=== PATIENT | female | born 1995 ===

== ENCOUNTER → 2024-12-03 14:17 | Outpatient (REF) | payer SELFPAY ==
--- OUTSIDE RECORDS SUMMARY | 2018-04-24 14:00 | XMS_ITS | Encounter Summary ---
Author Organization [facility] Address [address] [place] [address] Care Team Providers Care Child'S Nurse Name Role Phone Aminata Christine Primary Care Provider [phone] Reason for Referral * Diagnostic Imaging (Routine) - Closed Specialty Diagnoses / Procedures Referred By Contac t Referred To Contact Radiology Diagnoses First trimester Procedures US Ob Transvaginal Pushpa Cho MD [address] [place] [address] Phone: tel: fax: [facility] Phone: tel: Referral ID Status Reason Start Date Expiration Date Visits Re quested Visits Authorized [id number] Closed 04/24/2018 04/24/2019 1 1 Reason for Visit * Diagnostic Imaging (Routine) - Closed Specialty Diagnoses / Procedures Referred By Contac t Referred To Contact Radiology Diagnoses First trimester Procedures US Ob Transvaginal Pushpa Cho MD [address] [place] [address] [place] [address] Phone: tel: fax: [facility] Phone: tel: Referral ID Status Reason Start Date Expiration Date Visits Re quested Visits Authorized [id number] Closed 04/24/2018 04/24/2019 1 1 Encounter Details Date Type Department Care Team (Latest Contact Info) Description 04/24/2018 1:00 PM EST Hospital Encounter NIURKA CASTILLO [facility] [phone] First trimester Social History Tobacco Use Types Packs/Day Years Used Date Smoking Tobacco: Never Smokeless Tobacco: Never Alcohol Use Standard Drinks/Week Comments No 0 (1 standard drink = 0.6 oz pur e alcohol) socially when not AUDIT-C Answer Date Recorded Frequency of Alcohol Consumption Never 02/01/2019 Average Number of Drinks Not on file 019 Frequency of Binge Drinking Not on file 01/07 [place] Depression Scale Answer Date Recorded Retired [place] Depression Score 9 09/02/2021 Retired EPD Scale: Thought of Harming Self Unrec ognized value 09/02/2021 Abuse Screen Answer Date Recorded Unsafe at Home or Work/School Not on file Feels Threatened by Someone? Not on file 01/2023 Does Anyone Keep You from Co ntacting Others or Doint Things Outside the Home? Not on file 02/13/2023 Physical Sign of Abuse Present Not on file 1 Housing Stability Answer Date Recorded Current Living Arrangements Not on file 01/2023 Potentially Unsafe Housing Conditions Not on sharon e 02/13/2023 Family and Community Support Answer Meg e Recorded Help with Day-to-Day Activities Not on file 02/13/2023 Lonely or Isolated Not on file 02/13/2023 Employment Answer Date Recorded Do you want help finding or keeping work or a steph b? Not on file 02/13/2023 Disabilities Answer Date Recorded Concentrating, Remembering, or Making Decisions Difficulty Not on file 02/13/2023 Doing Errands Independently Difficulty Not on fi le 02/13/2023 Education Answer Date Recorded Help with school or training? Not on file Preferred Language Not on file 02/13/2023 Comments No Sex and Gender Information Value Date Recorded Sex Assigned at Not on file Legal Sex Female 11:06 AM EDT Gender Identity Not on file Sexual Orientation Not on file documented as of this encounter Functional Status documented as of this encounter Plan of Treatment Not on file documented as of this encounter Procedures Procedure Name Priority Date/Time Associated Diagnosis Comments US OB TRANSVAGINAL Routine 04/24/2018 1: 33 PM EST First trimester documented in this encounter Results * US Ob Transvaginal (04/24/2018 1:33 PM EST) Anatomical Region Laterality Modality Body Ultrasound 04/24/2018 1:15 PM EST Narrative 04/24/2018 2:28 PM EST PAT NAME: MALISSA BRAGA MED REC#: [id number] DA: [id number] PAT GEND: F PAT TYPE: O EXAM MEG: [id number] REF PHYS PUSHPA CHO Indication ======== Dating History ====== Previous Outcomes 1 Method ====== Transvaginal ultrasound examination, Voluson E6. View: Adequate view ========= Number of fetuses: uncertain. Dating ====== LMP on: 02/28/2018 GA by LMP 7 w + 6 d MARLYN by LMP: 12/05/2018 Method of dating: based on ultrasound Assessment Gestational sac: visualized GS 17.3 mm 6w 1d Location: intrauterine Yolk sac: visualized Embryo: uncertain Placenta: Too early to evaluate Maternal Structures Uterus and ovaries are within normal limits. Stone Rubber Comments A gestational sac is present, containing a yolk sac. A pole cannot be clearly seen or measured today. Impression ========= Early intrauterine gestational sac Recommendation Repeat U/S in the next 1-2 weeks for confirmation of cardiac activity Stone Rubber: Naye Momin RDMS Physician: Waylon Valencia MD Electronically signed by: Waylon Valencia MD at: 14:28 Procedure Note Waylon Valencia MD - 04/24/2018 PAT NAME: STEPH BRAGAELY MED REC#: [id number] DA: [id number] PAT GEND: F PAT TYPE: O EXAM MEG: [id number] REF PHYS PUSHPA CHO Indication ======== Dating History ====== Previous Outcomes Gravida1 Method ====== Transvaginal ultrasound examination, Voluson E6. View: Adequate view ========= Number of fetuses: uncertain. Dating ====== LMP on:02/28/2018 GA by LMP7 w + 6 d MARLYN by LMP:12/05/2018 Method of dating:based on ultrasound Assessment Gestational sac:visualized GS17.3 mm 6w 1d Location:intrauterine Yolk sac:visualized Embryo:uncertain Placenta:Too early to evaluate Maternal Structures Uterus and ovaries are within normal limits. Stone Rubber Comments A gestational sac is present, containing a yolk sac. A pole cannotbe clearly seen or measured today. Impression ========= Early intrauterine gestational sac Recommendation Repeat U/S in the next 1-2 weeks for confirmation of cardiac activity Stone Rubber: Naye Momin RDMS Physician: Waylon Valencia MD Electronically signed by: Waylon Valencia MD at: 14:28 Pushpa Cho MD [facility] ORDERABLES Final Resu lt documented in this encounter Visit Diagnoses Diagnosis First trimester state, incidental documented in this encounter Additional Health Concerns Infection Onset Date Last Indicated Resolved Time COVID Screen (preop/placement) 07/15/2021 07/16/2021 07/16/2021 8:34 PM EST documented as of this encounter Care Teams Child'S Nurse Relationship Specialty Start Date End Date Aminata Christine PA [address] [place] [address] PCP - General Family Medicine 12/20/16 documented as of this encounter
--- OUTSIDE RECORDS SUMMARY | 2018-05-02 15:12 | XMS_ITS | Encounter Summary ---
Author Organization [facility] Address [address] [place] [address] Care Team Providers Care Grain Manager Name Role Phone Aminata Christine Primary Care Provider [phone] Reason for Referral * Diagnostic Imaging (Routine) - Closed Specialty Diagnoses / Procedures Referred By Virginia nevarez Referred To Contact Radiology Diagnoses Encounter for supervision of normal first in first trimester Procedures US Ob Transvaginal Pushpa Cho MD [address] [facility] [address] [place] [address] Phone: tel: fax: [facility] Phone: tel: Referral ID Status Reason Start Date Expiration Date Visits Re quested Visits Authorized [id number] Closed 04/24/2018 04/24/2019 1 1 Reason for Visit * Diagnostic Imaging (Routine) - Closed Specialty Diagnoses / Procedures Referred By [place] nevarez Referred To Contact Radiology Diagnoses Encounter for supervision of normal first in first trimester Procedures US Ob Transvaginal Pushpa Cho MD [address] [facility] [address] [place] [address] Phone: tel: fax: [facility] Phone: tel: Referral ID Status Reason Start Date Expiration Date Visits Re quested Visits Authorized [id number] Closed 04/24/2018 04/24/2019 1 1 Encounter Details Date Type Department Care Team (Latest Contact Info) Description 05/02/2018 2:12 PM EST Hospital Encounter NIURKA CASTILLO [facility] [place] [phone] Encounter for supervision of normal first in first trimester Social History Tobacco Use Types Packs/Day Years Used Date Smoking Tobacco: Never Smokeless Tobacco: Never Alcohol Use Standard Drinks/Week Comments No 0 (1 standard drink = 0.6 oz pur e alcohol) socially when not AUDIT-C Answer Date Recorded Frequency of Alcohol Consumption Never 02/01/2019 Average Number of Drinks Not on file 019 Frequency of Binge Drinking Not on file 01/07 [place] Depression Scale Answer Date Recorded Retired [place] Depression Score 9 09/02/2021 Retired EPD Scale: [...] help finding or keeping work or a annabel b? Not on file 02/13/2023 Disabilities Answer [...] Associated Diagnosis Comments US OB TRANSVAGINAL Routine 05/02/2018 2: 42 PM EST Encounter for supervision of normal first in first trimester documented in this encounter Results * US Ob Transvaginal (05/02/2018 2:42 PM EST) Anatomical Region Laterality Modality Body Ultrasound 05/02/2018 2:39 PM EST Narrative 05/03/2018 5:06 PM EST PAT NAME: MALISSA BRAGA MED REC#: [id number] DA: [id number] PAT GEND: F PAT TYPE: O EXAM MEG: [id number] REF PHYS PUSHPA CHO Indication ======== F/U Threatened Ab., bleeding History ====== Previous Outcomes 1 Method ====== Transvaginal ultrasound examination, Voluson E6. View: Adequate view ========= Miranda . Number of fetuses: none. Dating ====== LMP on: 02/28/2018 GA by LMP 9 w + 0 d MARLYN by LMP: 12/05/2018 Method of dating: based on ultrasound Assessment Gestational sac: not visualized. Maternal Structures Uterus / Cervix Uterus long 50 mm Uterus ap 38 mm Uterus tr 55 mm Uterus Vol 54.2 cm Endometrial thickness, total 11.2 mm Cervical length 26.1 mm Technical Maintenance Technician Comments A gestational sac is NO longer visible within the uterus. EMC is still thickened. Impression ========= An intrauterine cannot be confirmed. Compared to prior exam this is consistent with a spontaneous Recommendation Follow-up as clinically indicated. Technical Maintenance Technician: Naye Momin RDMS Physician: Pushpa Cho MD Electronically signed by: Pushpa Cho MD at: 17:06 Procedure Note Pushpa Cho MD - 05/03/2018 PAT NAME: MALISSA BRAGA MED REC#: [id number] DA: [id number] PAT GEND: F PAT TYPE: O EXAM MEG: [id number] REF PHYS TAMMIE PUSHPA Indication ======== F/U Threatened Ab., bleeding History ====== Previous Outcomes Gravida1 Method ====== Transvaginal ultrasound examination, Voluson E6. View: Adequate view ========= Miranda . Number of fetuses: none. Dating ====== LMP on:02/28/2018 GA by LMP9 w + 0 d MARLYN by LMP:12/05/2018 Method of dating:based on ultrasound Assessment Gestational sac: not visualized. Maternal Structures Uterus / Cervix Uterus long50 mm Uterus ap38 mm Uterus tr55 mm Uterus Vol54.2 cm Endometrial thickness, total11.2 mm Cervical ehilfi38.1 mm Technical Maintenance Technician Comments A gestational sac is NO longer visible within the uterus. EMC is stillthickened. Impression ========= An intrauterine cannot be confirmed. Compared to prior exam thisis consistent with a spontaneous Recommendation Follow-up as clinically indicated. Technical Maintenance Technician: Naye Momin RDMS Physician: Pushpa Cho MD Electronically signed by: Pushpa Cho MD at: 17:06 Pushpa Cho MD [facility] US ORDERABLES Final Resu lt documented in this encounter Visit Diagnoses Diagnosis Encounter for supervision of normal first in first trimester documented in this encounter Additional Health Concerns Infection Onset Date Last Indicated Resolved Time COVID Screen (preop/placement) 07/15/2021 07/16/2021 07/16/2021 8:34 PM EST documented as of this encounter Care Teams Grain Manager Relationship Specialty Start Date End Date Aminata Christine PA [address] [place] [address] PCP - General Family Medicine 12/20/16 documented as of this encounter
--- OUTSIDE RECORDS SUMMARY | 2018-05-11 12:30 | XMS_ITS | Encounter Summary ---
Author Organization [facility] Address [address] [place] [address] Care Team Providers Care Pullman Car Repairer Name Role Phone Aminata Christine Primary Care Provider [phone] Reason for Referral * Diagnostic Imaging (Routine) - Closed Specialty Diagnoses / Procedures Referred By Contac t Referred To Contact Radiology Diagnoses Miscarriage Procedures US Non-ob Transvaginal Pushpa Cho MD [address] [place] [address] Phone: tel: fax: [facility] Phone: tel: Referral ID Status Reason Start Date Expiration Date Visits Re quested Visits Authorized [id number] Closed 05/02/2018 05/02/2019 1 1 Reason for Visit * Diagnostic Imaging (Routine) - Closed Specialty Diagnoses / Procedures Referred By Contac t Referred To Contact Radiology Diagnoses Miscarriage Procedures US Non-ob Transvaginal Pushpa Cho MD [address] [place] [address] Phone: tel: fax: [facility] Phone: tel: Referral ID Status Reason Start Date Expiration Date Visits Re quested Visits Authorized [id number] Closed 05/02/2018 05/02/2019 1 1 Encounter Details Date Type Department Care Team (Late st Contact Info) Description 05/11/2018 11:30 AM EST Hospital Encounter NIURKA CASTILLO [facility] [phone] Miscarriage Social History Tobacco Use Types Packs/Day Years Used Date Smoking Tobacco: Never Smokeless Tobacco: Never Alcohol Use Standard Drinks/Week Comments No 0 (1 standard drink = 0.6 oz pur e alcohol) socially when not AUDIT-C Answer Date Recorded Frequency of Alcohol Consumption Never 02/01/2019 Average Number of Drinks Not on file 019 Frequency of Binge Drinking Not on file 01/07 [place] Depression Scale Answer Date Recorded Retired [place] Depression Score 9 09/02/2021 Retired EPD Scale: [...] Name Priority Date/Time Associated Diagnosis Comments US NON-OB TRANSVAGINAL Routine 05/11/2018 12:09 PM EST Miscarriage documented in this encounter Results * US Non-ob Transvaginal (05/11/2018 12:09 PM EST) Anatomical Region Laterality Modality Body Ultrasound 05/11/2018 11:5 5 AM EST Narrative 05/11/2018 4:09 PM EST PAT NAME: MALISSA BRAGA [facility] REC#: [id number] DA: [id number] PAT GEND: F PAT TYPE: O EXAM MEG: [id number] REF PHYS PUSHPA CHO Indication ======== F/U miscarriage History ====== Previous Outcomes 1 Assessment LMP on 02/28/2018. Day of cycle 73 Method ====== Voluson E6, Transvaginal ultrasound examination, Color Doppler flow performed, 3D ultrasound examination. View: Adequate view Uterus ====== Uterus: Normal Uterus position: Anteverted Myometrium: Homogeneous Endometrium: Slightly Heterogeneous Cervix details: Normal Uterus long 47 mm Uterus ap 39 mm Uterus tr 49 mm Uterus Vol 46.9 cm Endometrial thickness, total 8.9 mm Cervical length 33.4 mm Right Ovary ========= Rt ovary: Normal Rt ovary D1 37.4 mm Rt ovary D2 17.2 mm Rt ovary D3 23.5 mm Left Ovary ======== Lt ovary: Normal Lt ovary D1 31.0 mm Lt ovary D2 26.9 mm Lt ovary D3 17.80 mm Cul de Sac ========= Normal Impression ========= Normal pelvic ultrasound No evidence of retained POC's Recommendation Follow-up as clinically indicated. Sanding Machine Operator: Ayala Cintron RDMS Physician: Waylon Valencia MD Electronically signed by: Waylon Valencia MD at: 17:31 Procedure Note Waylon Valencia MD - 09/21/2018 PAT NAME: MALISSA BRAGA MED REC#: [id number] DA: [id number] PAT GEND: F PAT TYPE: O EXAM MEG: [id number] REF PHYS PUSHPA CHO Indication ======== F/U miscarriage History ====== Previous Outcomes Gravida1 Assessment LMP on 02/28/2018. Day of cycle 73 Method ====== Voluson E6, Transvaginal ultrasound examination, Color Doppler flowperformed, 3D ultrasound examination. View: Adequate view Uterus ====== Uterus:Normal Uterus position:Anteverted Myometrium:Homogeneous Endometrium:Slightly Heterogeneous Cervix details:Normal Uterus long47 mm Uterus ap39 mm Uterus tr49 mm Uterus Vol46.9 cm Endometrial thickness, total8.9 mm Cervical jjiams28.4 mm Right Ovary ========= Rt ovary:Normal Rt ovary D137.4 mm Rt ovary D217.2 mm Rt ovary D323.5 mm Left Ovary ======== Lt ovary:Normal Lt ovary D131.0 mm Lt ovary D226.9 mm Lt ovary D317.80 mm Cul de Sac ========= Normal Impression ========= Normal pelvic ultrasound No evidence of retained POC's Recommendation Follow-up as clinically indicated. Sanding Machine Operator: Ayala Cintron RDMS Physician: Waylon Valencia MD Electronically signed by: Waylon Valencia MD at: 17:31 Pushpa Cho MD [facility] ORDERABLES Edited Res ult - Final documented in this encounter Visit Diagnoses Diagnosis Miscarriage Unspecified spontaneous without mention of complication documented in this encounter Additional Health Concerns Infection Onset Date Last Indicated Resolved Time COVID Screen (preop/placement) 07/15/2021 07/16/2021 07/16/2021 8:34 PM EST documented as of this encounter Care Teams Pullman Car Repairer Relationship Specialty Start Date End Date Aminata Christine PA [address] [address] PCP - General Family Medicine 12/20/16 documented as of this encounter
--- OUTSIDE RECORDS SUMMARY | 2018-07-03 13:54 | XMS_ITS | Encounter Summary ---
Author Organization [facility] Address [address] [place] [address] Care Team Providers Care Music Intern Name Role Phone Aminata Christine Primary Care Provider [phone] Reason for Referral * Diagnostic Imaging (Routine) - Closed Specialty Diagnoses / Procedures Referred By Contac t Referred To Contact Radiology Diagnoses First trimester Procedures US Ob Transvaginal Pushpa Cho MD [address] [place] [address] Phone: tel: fax: [facility] Phone: tel: Referral ID Status Reason Start Date Expiration Date Visits Re quested Visits Authorized [id number] Closed 07/03/2018 07/03/2019 1 1 Reason for Visit * Diagnostic Imaging (Routine) - Closed Specialty Diagnoses / Procedures Referred By Contac t Referred To Contact Radiology Diagnoses First trimester Procedures US Ob Transvaginal Pushpa Cho MD [address] [place] [address] [place] [address] Phone: tel: fax: [facility] Phone: tel: Referral ID Status Reason Start Date Expiration Date Visits Re quested Visits Authorized [id number] Closed 07/03/2018 07/03/2019 1 1 Encounter Details Date Type Department Care Team (Latest Contact Info) Description 07/03/2018 12:54 PM EST Hospital Encounter [facility]URKA CASTILLO [facility] [phone] First trimester Social History Tobacco Use Types Packs/Day Years Used Date Smoking Tobacco: Never Smokeless Tobacco: Never Alcohol Use Standard Drinks/Week Comments No 0 (1 standard drink = 0.6 oz pur e alcohol) socially when not AUDIT-C Answer Date Recorded Frequency of Alcohol Consumption Never 02/01/2019 Average Number of Drinks Not on file 019 Frequency of Binge Drinking Not on file 01/07 [place] Depression Scale Answer Date Recorded Retired [place] Depression Score 9 09/02/2021 Retired EPD Scale: [...] Associated Diagnosis Comments US OB TRANSVAGINAL Routine 07/03/2018 1: 36 PM EST First trimester documented in this encounter Results * US Ob Transvaginal (07/03/2018 1:36 PM EST) Anatomical Region Laterality Modality Body Ultrasound 07/03/2018 1:31 PM EST Narrative 07/03/2018 7:13 PM EST PAT NAME: MALISSA BRAGA [facility] REC#: [id number] DA: [id number] PAT GEND: F PAT TYPE: O EXAM MEG: [id number] REF PHYS PUSHPA CHO Indication ======== Dating, unsure about LMP due to recent miscarriage History ====== Previous Outcomes 1 Method ====== Transvaginal ultrasound examination, Voluson E6. View: Adequate view ========= Miranda . Number of fetuses: 1. Dating ====== Method of dating: based on ultrasound Ultrasound examination on: 07/03/2018 GA by U/S based upon: CRL GA by U/S 8 w + 4 d MARLYN by U/S: 02/08/2019 Assigned: Dating performed on 07/03/2018, based on ultrasound (CRL) Assigned GA 8 w + 4 d Assigned MARLYN: 02/08/2019 Assessment Gestational sac: visualized Location: intrauterine Yolk sac: visualized Embryo: visualized CRL 20.3 mm 8w 4d 77% Hadlock Cardiac activity: present FHR 171 bpm Placenta: Too early to evaluate Maternal Structures Uterus and ovaries are within normal limits. There is a corpus luteum on the right ovary. Digital Strategist Senior Manager Comments Single intrauterine is present Impression ========= Single viable intrauterine with normal cardiac activity Recommendation Follow-up as clinically indicated. Digital Strategist Senior Manager: Naye Momin RDMS Physician: Waylon Valencia MD Electronically signed by: Waylon Valencia MD at: 17:32 Procedure Note Waylon Valencia MD - 09/21/2018 PAT NAME: MALISSA BRAGA MED REC#: [id number] DA: [id number] PAT GEND: F PAT TYPE: O EXAM MEG: [id number] REF PHYS PUSHPA CHO Indication ======== Dating, unsure about LMP due to recent miscarriage History ====== Previous Outcomes Gravida1 Method ====== Transvaginal ultrasound examination, Voluson E6. View: Adequate view ========= Miranda . Number of fetuses: 1. Dating ====== Method of dating:based on ultrasound Ultrasound examination on:07/03/2018 GA by U/S based upon:CRL GA by U/S8 w + 4 d MARLYN by U/S:02/08/2019 Assigned:Dating performed on 07/03/2018, based on ultrasound (CRL) Assigned GA8 w + 4 d Assigned MARLYN:02/08/2019 Assessment Gestational sac:visualized Location:intrauterine Yolk sac:visualized Embryo:visualized CRL20.3 mm 8w 4d 77%[place]lock Cardiac activity:present [id number] bpm Placenta:Too early to evaluate Maternal Structures Uterus and ovaries are within normal limits. There is a corpus luteum onthe right ovary. Digital Strategist Senior Manager Comments Single intrauterine is present Impression ========= Single viable intrauterine with normal cardiac activity Recommendation Follow-up as clinically indicated. Digital Strategist Senior Manager: Naye Momin RDMS Physician: Waylon Valencia MD Electronically signed by: Waylon Valencia MD at: 17:32 Pushpa Cho MD G ORDERABLES Edited Res ult - Final documented in this encounter Visit Diagnoses Diagnosis First trimester state, incidental documented in this encounter Additional Health Concerns Infection Onset Date Last Indicated Resolved Time COVID Screen (preop/placement) 07/15/2021 07/16/2021 07/16/2021 8:34 PM EST documented as of this encounter Care Teams Music Intern Relationship Specialty Start Date End Date Aminata Christine PA [address] [place] [address] PCP - General Family Medicine 12/20/16 documented as of this encounter
--- OUTSIDE RECORDS SUMMARY | 2018-08-24 15:30 | XMS_ITS | Encounter Summary ---
Author Organization [facility] Address [address] [place] [address] Care Team Providers Care Branch Service Leader Name Role Phone Aminata Christine Primary Care Provider [phone] Reason for Referral * Diagnostic Imaging (Routine) - Closed Specialty Diagnoses / Procedures Referred By Contac t Referred To Contact Radiology Diagnoses Encounter for ultrasound to assess gender of fetus for maternal well being Procedures US OB Gender Scan Sierra Wolff MD [address] [place] [address] Phone: tel: fax: [facility] Phone: tel: Referral ID Status Reason Start Date Expiration Date Visits Re quested Visits Authorized [id number] Closed 08/24/2018 08/24/2019 1 1 Reason for Visit * Diagnostic Imaging (Routine) - Closed Specialty Diagnoses / Procedures Referred By Contac t Referred To Contact Radiology Diagnoses Encounter for ultrasound to assess gender of fetus for maternal well being Procedures US OB Gender Scan Sierra Wolff MD [address] [place] [address] [place] [address] Phone: tel: fax: [facility] Phone: tel: Referral ID Status Reason Start Date Expiration Date Visits Re quested Visits Authorized [id number] Closed 08/24/2018 08/24/2019 1 1 Encounter Details Date Type Department Care Team (Latest Contact Info) Description 08/24/2018 3:30 PM EDT Hospital Encounter NIURKA CASTILLO [facility] [place] [phone] Encounter for ultrasound to assess gender of fetus for maternal well being Social History Tobacco Use Types Packs/Day Years Used Date Smoking Tobacco: Never Smokeless Tobacco: Never Alcohol Use Standard Drinks/Week Comments No 0 (1 standard drink = 0.6 oz pur e alcohol) socially when not AUDIT-C Answer Date Recorded Frequency of Alcohol Consumption Never 02/01/2019 Average Number of Drinks Not on file 019 Frequency of Binge Drinking Not on file 01/07 [place] Depression Scale Answer Date Recorded Retired [place] Depression Score 9 09/02/2021 Retired EPD Scale: [...] e 02/13/2023 Family and Community Support Answer Laurent e Recorded Help with Day-to-Day Activities Not [...] Priority Date/Time Associated Diagnosis Comments US OB GENDER SCAN Routine 08/24/2018 3:5 3 PM EDT Encounter for ultrasound to assess gender of fetus for maternal well being documented in this encounter Results * US OB Gender Scan (08/24/2018 3:53 PM EDT) Narrative SYSTEMGENERATED, DOCUMENTATION - 08/24/2018 3:53 PM EDT This procedure was auto-finalized with no dictation required. us Sierra Wolff MD IMG US ORDERABLES Final Resu lt documented in this encounter Visit Diagnoses Diagnosis Encounter for ultrasound to assess gender of fetus for maternal well being documented in this encounter Additional Health Concerns Infection Onset Date Last Indicated Resolved Time COVID Screen (preop/placement) 07/15/2021 07/16/2021 07/16/2021 8:34 PM EST documented as of this encounter Care Teams Branch Service Leader Relationship Specialty Start Date End Date Aminata Christine PA [address] [address] PCP - General Family Medicine 12/20/16 documented as of this encounter
--- OUTSIDE RECORDS SUMMARY | 2018-09-21 13:29 | XMS_ITS | Encounter Summary ---
Author Organization [facility] Address [address] [place] [address] Care Team Providers Care Signalman Name Role Phone Aminata Christine Primary Care Provider [phone] Reason for Referral * Diagnostic Imaging (Routine) - Closed Specialty Diagnoses / Procedures Referred By Contac t Referred To Contact Radiology Diagnoses care, subsequent in second trimester Procedures US Ob 14 + Weeks Single or First Gestation Pushpa Cho MD [address] [place] [address] Phone: tel: fax: [facility] Phone: tel: Referral ID Status Reason Start Date Expiration Date Visits Re quested Visits Authorized [id number] Closed 08/07/2018 08/07/2019 1 1 Reason for Visit * Diagnostic Imaging (Routine) - Closed Specialty Diagnoses / Procedures Referred By Contac t Referred To Contact Radiology Diagnoses care, subsequent in second trimester Procedures US Ob 14 + Weeks Single or First Gestation Pushpa Cho MD [address] [place] [address] [place] [address] Phone: tel: fax: [facility] Phone: tel: Referral ID Status Reason Start Date Expiration Date Visits Re quested Visits Authorized [id number] Closed 08/07/2018 08/07/2019 1 1 Encounter Details Date Type Department Care Team (Latest Contact Info) Description 09/21/2018 1:29 PM EDT Hospital Encounter NIURKA CASTILLO [facility] [place] [phone] care, subsequent in second trimester Social History Tobacco Use Types Packs/Day Years Used Date Smoking Tobacco: Never Smokeless Tobacco: Never Alcohol Use Standard Drinks/Week Comments No 0 (1 standard drink = 0.6 oz pur e alcohol) socially when not AUDIT-C Answer Date Recorded Frequency of Alcohol Consumption Never 02/01/2019 Average Number of Drinks Not on file 019 Frequency of Binge Drinking Not on file 01/07 [place] Depression Scale Answer Date Recorded Retired [place] Depression Score 9 09/02/2021 Retired EPD Scale: [...] Priority Date/Time Associated Diagnosis Comments US OB 14 + WEEKS SINGLE OR FIRST GESTATION Routine 09/21/2018 1:49 PM EDT care, subsequent in second trimester documented in this encounter Results * US Ob 14 + Weeks Single or First Gestation (09/21/2018 1:49 PM EDT) Anatomical Region Laterality Modality Body Ultrasound 09/21/2018 1:32 PM EDT Narrative 09/21/2018 5:35 PM EDT PAT NAME: MALISSA LUTZ MED REC#: [id number] DA: [id number] PAT GEND: F PAT TYPE: O EXAM MEG: [id number] REF PHYS PUSHPA CHO Indication ======== anatomy survey History ====== Previous Outcomes 1 Method ====== Voluson E6, Transabdominal ultrasound examination. View: Sufficient view ========= Miranda . Number of fetuses: 1. Dating ====== GA by stated dating 20 w + 0 d MARLYN by stated dating : 02/08/2019 Ultrasound examination on: 09/21/2018 GA by U/S based upon: AC, BPD, Femur, HC GA by U/S 19 w + 5 d MARLYN by U/S: 02/10/2019 Method of dating: Restore dating from previous exam Assigned: Dating performed on 07/03/2018, based on ultrasound (CRL) Assigned GA 20 w + 0 d Assigned MARLYN: 02/08/2019 General Evaluation Cardiac activity present. FHR 158 bpm. movements present. Presentation cephalic. Placenta Placental site: posterior. Umbilical cord Cord vessels: 3 vessel cord. Amniotic fluid Amount of AF: normal. Biometry Biometry BPD 44.5 mm 19w 3d 27% HC 164.7 mm 19w 1d 11% Cerebellum tr 19.7 mm 18w 6d 33% Nicolaides AC 153.4 mm 20w 4d 63% Femur 31.8 mm 19w 6d 38% HC / AC 1.07 5% Hadlock EFW 333 g -/- Kalpesh EFW (lb) 0 lb EFW (oz) 12 oz EFW by: Hadlock (EEK-VF-BY-FL) Head / Face / Neck Director Of Therapy Services 7.1 mm CM 4.7 mm 42% Nicolaides Extremities / Bony Struc FL / BPD 0.71 64% Hadlock FL / HC 0.19 65% Hadlock FL / AC 0.21 21% Hadlock Other Structures FHR 158 bpm Anatomy Cranium: Normal Cranium: Cranial vault appears intact with normal head shape. Brain: The intracranial contents appear normal including the cerebral ventricles, choroid plexus, CSP, cisterna magna, cerebellum Lips: Normal Profile: Normal Nose: Normal 4-chamber view: visualized RVOT view: Normal LVOT view: Normal 4-chamber view: LV echogenic focus 1.7 and 2.3 mm Diaphragm: Intact Cord insertion: Normal Stomach: Normal Kidneys: Normal Bladder: Normal Abdom. wall: Abdominal wall is intact Stomach: left-sided Cervical spine: Normal Thoracic spine: Normal Lumbar spine: Normal Sacral spine: Normal Arms: Normal Legs: Normal Rt arm: Normal Lt arm: Normal Rt hand: Normal Lt hand: Normal Rt leg: Normal Lt leg: Normal Rt foot: Normal Lt foot: Normal Gender: female Wants to know gender: yes Maternal Structures Uterus and adnexa appear normal Impression ========= Single viable intrauterine with normal cardiac activity and biometry consistent with clinical dates. No structural abnormalities are seen on today's scan. Anatomic survey is complete. There is a left ventricular echogenic intracardiac focus present. This is considered a soft marker for aneuploidy (most notably trisomy 21). This finding may increase the patient's a priori risk for aneuploidy. Recommendation Follow-up scan as clinically indicated. Given the presence of a soft marker for aneuploidy, consider biochemical screening (NIPT or MSAFP-4) for additional information Back Order Clerk: Ayala Cintron RDMS Physician: Waylon Valencia MD Electronically signed by: Waylon Valencia MD at: 17:35 Procedure Note Waylon Valencia MD - 09/21/2018 PAT NAME: MALISSA LUTZ MED REC#: [id number] DA: [id number] PAT GEND: F PAT TYPE: O EXAM MEG: [id number] REF PHYS PUSHPA CHO Indication ======== anatomy survey History ====== Previous Outcomes Gravida1 Method ====== Voluson E6, Transabdominal ultrasound examination. View: Sufficient view ========= Miranda . Number of fetuses: 1. Dating ====== GA by stated dating 20 w + 0 d MARLYN by stated dating :02/08/2019 Ultrasound examination on:09/21/2018 GA by U/S based upon:AC, BPD, Femur, HC GA by U/S19 w + 5 d MARLYN by U/S:02/10/2019 Method of dating:Restore dating from previous exam Assigned:Dating performed on 07/03/2018, based on ultrasound (CRL) Assigned GA20 w + 0 d Assigned MARLYN:02/08/2019 General Evaluation Cardiac activity present. FHR 158 bpm. movements present. Presentation cephalic. Placenta Placental site: posterior. Umbilical cord Cord vessels: 3 vessel cord. Amniotic fluid Amount of AF: normal. Biometry Biometry BPD44.5 mm 19w 3d 27% HC164.7 mm 19w 1d 11% Cerebellum tr19.7 mm 18w 6d 33%Nicolaides AC153.4 mm 20w 4d 63% Femur31.8 mm 19w 6d 38% HC / AC1.07 5%Hadlock FVA791 g -/-Kalpesh EFW (lb)0 lb EFW (oz)12 oz EFW by:Hadlock (VYE-[id number]-WJ-FL) Head / Face / Neck Vp7.1 mm CM4.7 mm 42%Nicolaides Extremities / Bony Struc FL / BPD0.71 64%Hadlock FL / HC0.19 65%Hadlock FL / AC0.21 21%Hadlock Other Structures [id number] bpm Anatomy Cranium:Normal Cranium:Cranial vault appears intact with normal head shape. Brain: The intracranial contents appear normal including the cerebralventricles, choroid plexus, CSP, cisterna magna, cerebellum Lips:Normal Profile:Normal Nose:Normal 4-chamber view:visualized RVOT view:Normal LVOT view:Normal 4-chamber view:LV echogenic focus 1.7 and 2.3 mm Diaphragm:Intact Cord insertion:Normal Stomach:Normal Kidneys:Normal Bladder:Normal Abdom. wall:Abdominal wall is intact Stomach:left-sided Cervical spine:Normal Thoracic spine:Normal Lumbar spine:Normal Sacral spine:Normal Arms:Normal Legs:Normal Rt arm:Normal Lt arm:Normal Rt hand:Normal Lt hand:Normal Rt leg:Normal Lt leg:Normal Rt foot:Normal Lt foot:Normal Gender:female Wants to know gender:yes Maternal Structures Uterus and adnexa appear normal Impression ========= Single viable intrauterine with normal cardiac activity andbiometry consistent with clinical dates. No structural abnormalities are seen on today's scan. Anatomicsurvey is complete. There is a left ventricular echogenic intracardiac focus present. This isconsidered a soft marker for aneuploidy (most notably trisomy 21). This finding may increase the patient's a priori risk for aneuploidy. Recommendation Follow-up scan as clinically indicated. Given the presence of a soft marker for aneuploidy, consider biochemicalscreening (NIPT or MSAFP-4) for additional information Back Order Clerk: Ayala Cintron RDMS Physician: Waylon Valencia MD Electronically signed by: Waylon Valencia MD at: 17:35 Pushpa Cho MD [facility] Final Resu lt documented in this encounter Visit Diagnoses Diagnosis care, subsequent in second trimester documented in this encounter Additional Health Concerns Infection Onset Date Last Indicated Resolved Time COVID Screen (preop/placement) 07/15/2021 07/16/2021 07/16/2021 8:34 PM EST documented as of this encounter Care Teams Signalman Relationship Specialty Start Date End Date Aminata Christine PA [address] [place] [address] PCP - General Family Medicine 12/20/16 documented as of this encounter
--- OUTSIDE RECORDS SUMMARY | 2020-12-31 09:57 | XMS_ITS | Encounter Summary ---
Author Organization [facility] Address [address] [place] [address] Care Team Providers Care Roving Frame Tender Name Role Phone Aminata Christine Primary Care Provider [phone] Reason for Referral * Diagnostic Imaging (Routine) - Closed Specialty Diagnoses / Procedures Referred By Virginia nevarez Referred To Contact Radiology Diagnoses Encounter to determine viability of , single or unspecified fetus Procedures US Ob Transvaginal Sierra Cho MD [address] [place] [address] Phone: tel: fax: [facility] Phone: tel: Referral ID Status Reason Start Date Expiration Date Visits Re quested Visits Authorized [id number] Closed 12/28/2020 12/28/2021 1 1 Reason for Visit * Diagnostic Imaging (Routine) - Closed Specialty Diagnoses / Procedures Referred By Contac t Referred To Contact Radiology Diagnoses Encounter to determine viability of , single or unspecified fetus Procedures US Ob Transvaginal Sierra Cho MD [address] [place] [address] [place] [address] Phone: tel: fax: [facility] Phone: tel: Referral ID Status Reason Start Date Expiration Date Visits Re quested Visits Authorized [id number] Closed 12/28/2020 12/28/2021 1 1 Encounter Details Date Type Department Care Team (Latest Contact Info) Description 12/31/2020 9:57 AM EDT Hospital Encounter NIURKA CASTILLO [facility] [place] [phone] Encounter to determine viability of , single or unspecified fetus Social History Tobacco Use Types Packs/Day Years Used Date Smoking Tobacco: Never Smokeless Tobacco: Never Alcohol Use Standard Drinks/Week Comments No 0 (1 standard drink = 0.6 oz pur e alcohol) socially when not AUDIT-C Answer Date Recorded Frequency of Alcohol Consumption Never 02/01/2019 Average Number of Drinks Not on file 019 Frequency of Binge Drinking Not on file 01/07 [place] Depression Scale Answer Date Recorded Retired [place] Depression Score 9 09/02/2021 Retired EPD Scale: [...] on file documented as of this encounter Plan of Treatment Not on file documented as of this encounter Procedures Procedure Name Priority Date/Time Associated Diagnosis Comments US OB TRANSVAGINAL Routine 12/31/2020 10 :15 AM EDT Encounter to determine viability of , single or unspecified fetus documented in this encounter Results * US Ob Transvaginal (12/31/2020 10:15 AM EDT) Anatomical Region Laterality Modality Body Ultrasound 12/31/2020 11:1 1 AM EDT Narrative 01/01/2021 7:14 AM EDT PAT NAME: MALISSA NEFF MED REC#: [id number] DA: [id number] PAT GEND: F PAT TYPE: O EXAM LAURENT: [id number] REF PHYS SIERRA CHO Indication ======== Encounter to determine viability of , single or unspecified fetus [O36.80X0 (ICD-10-CM)] Comparison Studies There are no relevant prior studies to which this study is being compared History ====== General History Other: BMI 29.6 Previous Outcomes 1 Method ======= Transvaginal ultrasound examination, Voluson E6. View: Adequate view ========= Miranda . Number of fetuses: 1 Single intrauterine present Dating ====== Method of dating: based on the LMP LMP on: 10/19/2020 GA by LMP 10 w + 3 d MARLYN by LMP: 07/26/2021 Ultrasound examination on: 12/31/2020 GA by U/S based upon: CRL GA by U/S 10 w + 1 d MARLYN by U/S: 07/28/2021 Assigned: based on the LMP, selected on 12/31/2020 Assigned GA 10 w + 3 d Assigned MARLYN: 07/26/2021 length 280 d Assessment Gestational sac: visualized Location: intrauterine Yolk sac: visualized Embryo: visualized CRL 32.7 mm 10w 1d 11% Hadlock Cardiac activity: present FHR 167 bpm 37% Nicolaides Placenta: Too early to evaluate Maternal Structures Uterus / Cervix Uterus: Visualized Cervix: Visualized Ovaries / Tubes / Adnexa Rt ovary: Suboptimal Lt ovary: Visualized Impression ========= Single viable intrauterine with normal cardiac activity and biometry consistent with clinical dates Recommendation Follow-up as clinically indicated. Chief Growth Officer: Светлана Flores RDMS Physician: Waylon Valencia MD Electronically signed by: Waylon Valencia MD at: 07:14 Procedure Note Waylon Valencia MD - 01/01/2021 PAT NAME: MALISSA NEFF MED REC#: [id number] DA: [id number] PAT GEND: F PAT TYPE: O EXAM LAURENT: [id number] REF PHYS SIERRA CHO Indication ======== Encounter to determine viability of , single or unspecifiedfetus [O36.80X0 (ICD-10-CM)] Comparison Studies There are no relevant prior studies to which this study is beingcompared History ====== General History Other:BMI 29.6 Previous Outcomes Gravida1 Method ======= Transvaginal ultrasound examination, Voluson E6. View: Adequate view ========= Miranda . Number of fetuses: 1 Single intrauterine present Dating ====== Method of dating:based on the LMP LMP on:10/19/2020 GA by LMP10 w + 3 d MARLYN by LMP:07/26/2021 Ultrasound examination on:12/31/2020 GA by U/S based upon:CRL GA by U/S10 w + 1 d MARLYN by U/S:07/28/2021 Assigned:based on the LMP, selected on 12/31/2020 Assigned GA10 w + 3 d Assigned MARLYN:07/26/2021 [id number] d Assessment Gestational sac:visualized Location:intrauterine Yolk sac:visualized Embryo:visualized CRL32.7 mm 10w 1d 11% Hadlock Cardiac activity:present MNL532 bpm 37% Nicolaides Placenta:Too early to evaluate Maternal Structures Uterus / Cervix Uterus:Visualized Cervix:Visualized Ovaries / Tubes / Adnexa Rt ovary:Suboptimal Lt ovary:Visualized Impression ========= Single viable intrauterine with normal cardiac activity andbiometry consistent with clinical dates Recommendation Follow-up as clinically indicated. Chief Growth Officer: Светлана Flores RDMS Physician: Waylon Valencia MD Electronically signed by: Waylon Valencia MD at: 07:14 [facility] ORDERABLES Final Resu lt documented in this encounter Visit Diagnoses Diagnosis Encounter to determine viability of , single or unspecified fetus documented in this encounter Additional Health Concerns Infection Onset Date Last Indicated Resolved Time COVID Screen (preop/placement) 07/15/2021 07/16/2021 07/16/2021 8:34 PM EST documented as of this encounter Care Teams Roving Frame Tender Relationship Specialty Start Date End Date Aminata Christine PA [address] [place] [address] PCP - General Family Medicine 12/20/16 documented as of this encounter
--- OUTSIDE RECORDS SUMMARY | 2021-02-24 07:57 | XMS_ITS | Encounter Summary ---
Author Organization [facility] Address [address] [place] [address] Care Team Providers Care Auditor Tax Name Role Phone Aminata Christine Primary Care Provider [phone] Reason for Referral * Diagnostic Imaging (Routine) - Closed Specialty Diagnoses / Procedures Referred By Contac t Referred To Contact Radiology Diagnoses Encounter for ultrasound to assess gender of fetus for maternal well being Procedures US OB Gender Scan Sierra Wolff MD [address] [place] [address] Phone: tel: fax: [facility] Phone: tel: Referral ID Status Reason Start Date Expiration Date Visits Re quested Visits Authorized [id number] Closed 02/23/2021 02/23/2022 1 1 Reason for Visit * Diagnostic Imaging (Routine) - Closed Specialty Diagnoses / Procedures Referred By Contac t Referred To Contact Radiology Diagnoses Encounter for ultrasound to assess gender of fetus for maternal well being Procedures US OB Gender Scan Sierra Wolff MD [address] [place] [address] [place] [address] Phone: tel: fax: [facility] Phone: tel: Referral ID Status Reason Start Date Expiration Date Visits Re quested Visits Authorized [id number] Closed 02/23/2021 02/23/2022 1 1 Encounter Details Date Type Department Care Team (Latest Contact Info) Description 02/24/2021 7:57 AM EDT Hospital Encounter NIURKA CASTILLO [facility] [place] [phone] Encounter for ultrasound to assess gender of [...] of Binge Drinking Not on file 01/07 [place] Depression Scale Answer Date Recorded Retired [place] Depression Score 9 09/02/2021 Retired EPD Scale: [...] Diagnosis Comments US OB GENDER SCAN Routine 02/24/2021 8:1 4 AM EDT Encounter for ultrasound to assess gender of fetus for maternal well being documented in this encounter Results * US OB Gender Scan (02/24/2021 8:14 AM EDT) Narrative SYSTEMGENERATED, DOCUMENTATION - 02/24/2021 8:14 AM EDT This procedure was auto-finalized with no [...] documented as of this encounter Care Teams Auditor Tax Relationship Specialty Start Date End Date Aminata Christine PA [address] [place] [address] PCP - General Family Medicine 12/20/16 documented as of this encounter
--- OUTSIDE RECORDS SUMMARY | 2021-03-22 11:11 | XMS_ITS | Encounter Summary ---
Author Organization [facility] Address [address] [place] [address] Care Team Providers Care Fixing Machine Operator Name Role Phone Aminaat Christine Primary Care Provider [phone] Reason for Referral * Diagnostic Imaging (Routine) - Closed Specialty Diagnoses / Procedures Referred By Contac t Referred To Contact Radiology Diagnoses care, subsequent in second trimester Procedures US Ob 14 + Weeks Single or First Gestation Sierra Cho MD [address] [place] [address] Phone: tel: fax: [facility] Phone: tel: Referral ID Status Reason Start Date Expiration Date Visits Re quested Visits Authorized [id number] Closed 02/24/2021 02/24/2022 1 1 Reason for Visit * Diagnostic Imaging (Routine) - Closed Specialty Diagnoses / Procedures Referred By Contac t Referred To Contact Radiology Diagnoses care, subsequent in second trimester Procedures US Ob 14 + Weeks Single or First Gestation Sierra Cho MD [address] [place] [address] [place] [address] Phone: tel: fax: [facility] Phone: tel: Referral ID Status Reason Start Date Expiration Date Visits Re quested Visits Authorized [id number] Closed 02/24/2021 02/24/2022 1 1 Encounter Details Date Type Department Care Team (Latest Contact Info) Description 03/22/2021 10:11 AM EST Hospital Encounter NIURKA CASTILLO [facility] [place] [phone] care, subsequent in second trimester Social History [...] of Binge Drinking Not on file 01/07 [place] Depression Scale Answer Date Recorded Retired [place] Depression Score 9 09/02/2021 Retired EPD Scale: [...] + WEEKS SINGLE OR FIRST GESTATION Routine 03/22/2021 11:35 AM EST care, subsequent in second trimester documented in this encounter Results * US Ob 14 + Weeks Single or First Gestation (03/22/2021 11:35 AM EST) Anatomical Region Laterality Modality Body Ultrasound 03/22/2021 11:4 9 AM EST Narrative 03/22/2021 9:50 PM EST PAT NAME: MALISSA NEFF MED REC#: [id number] DA: [id number] PAT GEND: F PAT TYPE: O EXAM LAURENT: [id number] REF PHYS SIERRA CHO Indication ======== anatomy survey Comparison Studies There are no relevant prior studies to which this study is being compared History ====== General History Other: BMI 29.6 Previous Outcomes 1 Method ======= Voluson E6, Transabdominal ultrasound examination. View: Sufficient view ========= Miranda . Number of fetuses: 1 Dating ====== LMP on: 10/19/2020 GA by LMP 22 w + 0 d MARLYN by LMP: 07/26/2021 GA by prior assessment 22 w + 0 d MARLYN by prior assessment: 07/26/2021 Ultrasound examination on: 03/22/2021 GA by U/S based upon: AC, BPD, Femur, HC GA by U/S 21 w + 4 d MARLYN by U/S: 07/29/2021 Method of dating: Restore dating from previous exam Previous dating: based on the LMP, selected on 12/31/2020 Agreed MARLYN of previous datin07/26/2021 Assigned: based on the LMP, selected on 12/31/2020 Assigned GA 22 w + 0 d Assigned MARLYN: 07/26/2021 length 280 d General Evaluation Cardiac activity present. FHR 138 bpm. movements present. Presentation cephalic. Placenta Placental site: posterior. Umbilical cord Cord vessels: 3 vessel cord. Amniotic fluid Amount of AF: normal. Biometry Standard BPD 48.7 mm 20w 5d 8% Hadlock OFD 66.7 mm 22w 3d 66% Rocco HC 187.7 mm 21w 1d 9% Hadlock Cerebellum tr 20.0 mm 19w 2d 2% Hill AC 174.2 mm 22w 2d 54% Hadlock Femur 37.2 mm 21w 6d 35% Hadlock HC / AC 1.08 EFW 465 g 37% Kalpesh EFW (lb) 1 lb EFW (oz) 0 oz EFW by: Hadlock ([id number]) Extended Management Coordinator 3.9 mm CM 4.1 mm 11% Nicolaides Head / Face / Neck Cephalic index 0.73 5% Nicolaides Extremities / Bony Struc FL / BPD 0.76 FL / HC 0.20 FL / AC 0.21 Other Structures FHR 138 bpm Anatomy Cranium: Appears normal Lateral ventricles: Appears normal Choroid plexus: Appears normal Midline falx: Appears normal Cavum septi pellucidi: Appears normal Cerebellum: Appears normal Cisterna magna: Appears normal Lips: Appear normal Profile: Appears normal Nose: Appears normal 4-chamber view: Appears normal RVOT view: Appears normal LVOT view: Appears normal Heart / Thorax 3-vessel view: Appears normal 7-rvvqia-ltqkxsp view: Appears normal Diaphragm: Appears normal Diaphragm: Intact Cord insertion: Appears normal Stomach: Appears normal Kidneys: Appears normal Bladder: Appears normal Abdomen Abdom. wall: Abdominal wall is intact Stomach: left-sided Cervical spine: Appears normal Thoracic spine: Appears normal Lumbar spine: Appears normal Sacral spine: Appears normal Arms: Appears normal Legs: Appears normal Rt arm: Appears normal Lt arm: Appears normal Rt hand: Appears normal Lt hand: Appears normal Rt leg: Appears normal Lt leg: Appears normal Rt foot: Appears normal Lt foot: Appears normal Maternal Structures Uterus / Cervix Uterus: Visualized Cervix: Visualized Ovaries / Tubes / Adnexa Rt ovary: Visualized Lt ovary: Visualized Impression ========= Single viable intrauterine with normal cardiac activity and biometry consistent with clinical dates No structural abnormalities are seen on today's scan. Anatomic survey is now complete. Recommendation Follow-up scan as clinically indicated Retail Department Reset: JENELLE Bradford Physician: Waylon Valencia MD Electronically signed by: Waylon Valencia MD at: 21:50 Procedure Note Waylon Valencia MD - 03/22/2021 PAT NAME: MALISSA NEFF MED REC#: [id number] DA: [id number] PAT GEND: F PAT TYPE: O EXAM LAURENT: [id number] REF PHYS SIERRA CHO Indication ======== anatomy survey Comparison Studies There are no relevant prior studies to which this study is beingcompared History ====== General History Other:BMI 29.6 Previous Outcomes Gravida1 Method ======= Voluson E6, Transabdominal ultrasound examination. View: Sufficient view ========= Miranda . Number of fetuses: 1 Dating ====== LMP on:10/19/2020 GA by LMP22 w + 0 d MARLYN by LMP:07/26/2021 GA by prior w + 0 d MARLYN by prior assessment:07/26/2021 Ultrasound examination on:03/22/2021 GA by U/S based upon:AC, BPD, Femur, HC GA by U/S21 w + 4 d MARLYN by U/S:07/29/2021 Method of dating:Restore dating from previous exam Previous dating:based on the LMP, selected on 12/31/2020 Agreed MARLYN of previous datin07/26/2021 Assigned:based on the LMP, selected on 12/31/2020 Assigned GA22 w + 0 d Assigned MARLYN:07/26/2021 [id number] d General Evaluation Cardiac activity present. FHR 138 bpm. movements present. Presentation cephalic. Placenta Placental site: posterior. Umbilical cord Cord vessels: 3 vessel cord. Amniotic fluid Amount of AF: normal. Biometry Standard BPD48.7 mm 20w 5d 8% Hadlock OFD66.7 mm 22w 3d 66% Rocco HC187.7 mm 21w 1d 9% Hadlock Cerebellum tr20.0 mm 19w 2d 2% Hill AC174.2 mm 22w 2d 54% Hadlock Femur37.2 mm 21w 6d 35% Hadlock HC / AC1.08 ZDL002 g 37% Kalpesh EFW (lb)1 lb EFW (oz)0 oz EFW by:Hadlock ([id number]) Extended Vp3.9 mm CM4.1 mm 11% Nicolaides Head / Face / Neck Cephalic index0.73 5% Nicolaides Extremities / Bony Struc FL / BPD0.76 FL / HC0.20 FL / AC0.21 Other Structures AUD863 bpm Anatomy Cranium:Appears normal Lateral ventricles:Appears normal Choroid plexus:Appears normal Midline falx:Appears normal Cavum septi pellucidi:Appears normal Cerebellum:Appears normal Cisterna magna:Appears normal Lips:Appear normal Profile:Appears normal Nose:Appears normal 4-chamber view:Appears normal RVOT view:Appears normal LVOT view:Appears normal Heart / Thorax 3-vessel view:Appears normal 5-xbpklq-qcqrfxd view:Appears normal Diaphragm:Appears normal Diaphragm:Intact Cord insertion:Appears normal Stomach:Appears normal Kidneys:Appears normal Bladder:Appears normal Abdomen Abdom. wall:Abdominal wall is intact Stomach:left-sided Cervical spine:Appears normal Thoracic spine:Appears normal Lumbar spine:Appears normal Sacral spine:Appears normal Arms:Appears normal Legs:Appears normal Rt arm:Appears normal Lt arm:Appears normal Rt hand:Appears normal Lt hand:Appears normal Rt leg:Appears normal Lt leg:Appears normal Rt foot:Appears normal Lt foot:Appears normal Maternal Structures Uterus / Cervix Uterus:Visualized Cervix:Visualized Ovaries / Tubes / Adnexa Rt ovary:Visualized Lt ovary:Visualized Impression ========= Single viable intrauterine with normal cardiac activity andbiometry consistent with clinical dates No structural abnormalities are seen on today's scan. Anatomicsurvey is now complete. Recommendation Follow-up scan as clinically indicated Retail Department Reset: JENELLE Bradford Physician: Waylon Valencia MD Electronically signed by: Waylon Valencia MD at: 21:50 [facility] Center[facility]il[facility] MD [facility] ORDERABLES Final Resu lt documented in this encounter Visit Diagnoses Diagnosis care, subsequent in second trimester documented in this encounter Additional Health Concerns Infection Onset Date Last Indicated Resolved Time COVID Screen (preop/placement) 07/15/2021 07/16/2021 07/16/2021 8:34 PM EST documented as of this encounter Care Teams Fixing Machine Operator Relationship Specialty Start Date End Date Aminata Christine PA [address] [place] [address] PCP - General Family Medicine 12/20/16 documented as of this encounter
--- OUTSIDE RECORDS SUMMARY | 2021-06-22 14:18 | XMS_ITS | Encounter Summary ---
Author Organization [facility] Address [address] [place] [address] Care Team Providers Care Casket Trimmer Name Role Phone Aminata Christine Primary Care Provider [phone] Reason for Referral * Diagnostic Imaging (Routine) - Closed Specialty Diagnoses / Procedures Referred By Contac t Referred To Contact Radiology Diagnoses care, subsequent in third trimester Rash in adult Procedures US Ob Follow Up Transabdominal Approach Sierra Cho MD [address] [place] [address] Phone: tel: fax: [facility] Phone: tel: Referral ID Status Reason Start Date Expiration Date Visits Re quested Visits Authorized [id number] Closed 06/08/2021 06/08/2022 1 1 Reason for Visit * Diagnostic Imaging (Routine) - Closed Specialty Diagnoses / Procedures Referred By Contac t Referred To Contact Radiology Diagnoses care, subsequent in third trimester Rash in adult Procedures US Ob Follow Up Transabdominal Approach Sierra Cho MD [facility] [address] [place] [address] Phone: tel: fax: [facility] Phone: tel: Referral ID Status Reason Start Date Expiration Date Visits Re quested Visits Authorized [id number] Closed 06/08/2021 06/08/2022 1 1 Encounter Details Date Type Department Care Team (Latest Contact Info) Description 06/22/2021 1:18 PM EST Hospital Encounter [facility]URKA CASTILL[facility] [place] [phone] care, subsequent in third trimester; Rash in adult Social History Tobacco Use Types Packs/Day Years Used Date Smoking Tobacco: Never Smokeless Tobacco: Never Alcohol Use Standard Drinks/Week Comments No 0 (1 standard drink = 0.6 oz pur e alcohol) socially when not AUDIT-C Answer Date Recorded Frequency of Alcohol Consumption Never 02/01/2019 Average Number of Drinks Not on file 019 Frequency of Binge Drinking Not on file 01/07 [place] Depression Scale Answer Date Recorded Retired [place] Depression Score 9 09/02/2021 Retired EPD Scale: [...] Priority Date/Time Associated Diagnosis Comments US OB FOLLOW UP TRANSABDOMINAL APPROACH Routine 06/22/2021 2:03 PM EST care, subsequent in third trimester Rash in adult documented in this encounter Results * US Ob Follow Up Transabdominal Approach (06/22/2021 2:03 PM EST) Anatomical Region Laterality Modality Body Ultrasound 06/22/2021 2:55 PM EST Narrative 06/22/2021 9:15 PM EST PAT NAME: MALISSA NEFF MED REC#: [id number] DA: [id number] PAT GEND: F PAT TYPE: O EXAM LAURENT: [id number] REF PHYS SIERRA CHO Indication ======== Follow-up evaluation for growth. Comparison Studies There are no relevant prior studies to which this study is being compared History ====== General History Other: BMI 29.6 Previous Outcomes 1 Method ======= Voluson E6, Transabdominal ultrasound examination ========= Miranda . Number of fetuses: 1 Dating ====== LMP on: 10/19/2020 GA by LMP 35 w + 1 d MARLYN by LMP: 07/26/2021 GA by prior assessment 35 w + 1 d MARLYN by prior assessment: 07/26/2021 Ultrasound examination on: 06/22/2021 GA by U/S based upon: AC, BPD, Femur, HC GA by U/S 34 w + 5 d MARLYN by U/S: 07/29/2021 Method of dating: Restore dating from previous exam Previous dating: based on the LMP, selected on 12/31/2020 Agreed MARLYN of previous datin07/26/2021 Assigned: based on the LMP, selected on 12/31/2020 Assigned GA 35 w + 1 d Assigned MARLYN: 07/26/2021 length 280 d General Evaluation Cardiac activity present. FHR 161 bpm. movements visualized. Presentation cephalic. Placenta Placental site: posterior. Amniotic fluid Amount of AF: normal. Biometry Standard BPD 84.3 mm 34w 0d 20% Hadlock OFD 109.0 mm 36w 0d 73% Rocco HC 307.4 mm 34w 2d 6% Hadlock AC 310.8 mm 35w 0d 54% Hadlock Femur 69.1 mm 35w 3d 52% Hadlock HC / AC 0.99 EFW 2,555 g 42% Kalpesh EFW (lb) 5 lb EFW (oz) 10 oz EFW by: Dru ([id number]-FL) Other: An ultrasound for weight has a margin of error of up to twenty percent. Head / Face / Neck Cephalic index 0.77 15% Nicolaides Extremities / Bony Struc FL / BPD 0.82 FL / HC 0.22 FL / AC 0.22 Other Structures FHR 161 bpm Anatomy Lateral ventricles: Appears normal 4-chamber view: Appears normal Stomach: Appears normal Kidneys: Appears normal Bladder: Appears normal Impression ========= There is appropriate interval growth & normal amniotic fluid quantity Recommendation Follow-up scan as clinically indicated for the condition being monitored. Hole Digger Operator: Светлана Flores RDMS Physician: Sierra Cho MD Electronically signed by: Sierra Cho MD at: 21:15 Procedure Note Sierra Cho MD - 06/22/2021 PAT NAME: MALISSA NEFF MED REC#: [id number] DA: [id number] PAT GEND: F PAT TYPE: O EXAM LAURENT: [id number] REF PHYS SIERRA CHO Indication ======== Follow-up evaluation for growth. Comparison Studies There are no relevant prior studies to which this study is beingcompared History ====== General History Other:BMI 29.6 Previous Outcomes Gravida1 Method ======= Voluson E6, Transabdominal ultrasound examination ========= Miranda . Number of fetuses: 1 Dating ====== LMP on:10/19/2020 GA by LMP35 w + 1 d MARLYN by LMP:07/26/2021 GA by prior [id number] w + 1 d MARLYN by prior assessment:07/26/2021 Ultrasound examination on:06/22/2021 GA by U/S based upon:AC, BPD, Femur, HC GA by U/S34 w + 5 d MARLYN by U/S:07/29/2021 Method of dating:Restore dating from previous exam Previous dating:based on the LMP, selected on 12/31/2020 Agreed MARLYN of previous datin07/26/2021 Assigned:based on the LMP, selected on 12/31/2020 Assigned GA35 w + 1 d Assigned MARLYN:07/26/2021 [id number] d General Evaluation Cardiac activity present. FHR 161 bpm. movements visualized. Presentation cephalic. Placenta Placental site: posterior. Amniotic fluid Amount of AF: normal. Biometry Standard BPD84.3 mm 34w 0d 20% Hadlock LXI203.0 mm 36w 0d 73% Rocco HC307.4 mm 34w 2d 6% Hadlock AC310.8 mm 35w 0d 54% Hadlock Femur69.1 mm 35w 3d 52% Hadlock HC / AC0.99 EFW2,555 g 42% Kalpesh EFW (lb)5 lb EFW (oz)10 oz EFW by:Hadlock ([id number]-FL) Other:An ultrasound for weight has a margin of error of up totwenty percent. Head / Face / Neck Cephalic index0.77 15% Nicolaides Extremities / Bony Struc FL / BPD0.82 FL / HC0.22 FL / AC0.22 Other Structures [id number] bpm Anatomy Lateral ventricles:Appears normal 4-chamber view:Appears normal Stomach:Appears normal Kidneys:Appears normal Bladder:Appears normal Impression ========= There is appropriate interval growth & normal amniotic fluidquantity Recommendation Follow-up scan as clinically indicated for the condition beingmonitored. Hole Digger Operator: Светлана Flores RDKS Physician: Sierra Cho MD Electronically signed by: Sierra Cho MD at: 21:15 Sierra Cho MD IMG US ORDERABLES Final Resu lt documented in this encounter Visit Diagnoses Diagnosis care, subsequent in third trimester Rash in adult documented in this encounter Additional Health Concerns Infection Onset Date Last Indicated Resolved Time COVID Screen (preop/placement) 07/15/2021 07/16/2021 07/16/2021 8:34 PM EST documented as of this encounter Care Teams Casket Trimmer Relationship Specialty Start Date End Date Aminata Christine PA [address] [address] PCP - General Family Medicine 12/20/16 documented as of this encounter
--- OUTSIDE RECORDS SUMMARY | 2024-12-03 14:20 | XMS_ITS | Clinical Summary ---
Author Organization [facility] Address [address] [place] [address] Care Team Providers Care Humane Officer Name Role Phone Aminata Christine Primary Care Provider Allergies No known active allergies Medications No known medications Active Problems Problem Noted Date Diagnosed Date Well woman exam 07/20/2018 Overview (01/05/2021): 07/2018: ASCUS, negative HPV 12/2020: Normal pap cytology Resolved Problems Problem Noted Date Diagnosed Date Resolved Date care following SV D 07/20/21 - Zahraa 07/21/2021 09/02/2021 Encounter for elective induction of labor 07/19/2021 07/21/2021 Urinary tract infection in m other during first trimester of 01/01/2021 07/21/2021 care, subsequent pr egnancy in third trimester 01/01/2021 07/21/2021 Overview (06/08/2021): gender: Female classes discussed: Circumcision (y / n / na): n/a Crop Grain Or Livestock Farm Manager: 05/11/2021 Baby's name: -- Breast/bottle feeding: Bottle Placental location: Posterior Postdates discussed: Tdap discussed: 05/11/2021 Tdap vaccine received: yes Flu vaccine discussed: 02/24/2021 Flu vaccine received: declines Declines covid vaccine PPBC: Genetic screening: FOB name: Encounter for elective induction of labor 02/13/2019 02/13/2019 care following va ginal delivery 02/13/19 (girl) 02/13/2019 03/29/2019 02/01/2019 02/13/2019 12/12/2018 01/24/2019 Maternal anemia in , antepartum 11/14/2018 02/13/2019 Overview (11/14/2018): Hgb 10.9 at 27w5d Start oral Fe LVEIF 09/22/2018 02/13/2019 Overview (12/12/2018): [X] PDC scan at 32 weeks Declined genetic screening Rubella non-immune - needs v accinated 07/12/2018 03/29/2019 care, subsequent 07/04/2018 02/13/2019 Overview (12/12/2018): gender: Female classes discussed: 11/14/2018 Circumcision (y / n / na): n/a Crop Grain Or Livestock Farm Manager: 09/21/2018 dicussed Baby's name: Crystal Bethea Breast/bottle feeding: Considering breast feeding Placental location: Posterior Postdates discussed: Tdap discussed: 11/14/2018 letter Tdap vaccine received: Yes Flu vaccine discussed: 08/07/2018 Flu vaccine received: No 07/2018: Negative STD cultures Rubella non immune 07/2018: ASCUS, negative HPV Declines genetic screening Hair loss - [X] talk about TSH 0.693 Spontaneous 04/24/2018 019 Overview (05/11/2018): FOB Danna LMP 02/28/18 (MARLYN 12/05/18). Regular periods. 04/24/2018: GS with yolk sac at 6w1d. 05/02/18: A gestational sac is NO longer visible within the uterus. EMC is still thickened. 05/11/2018: repeat ultrasound and follow up Immunizations Immunization Administration Dates Next Due MMR 02/15/2019 Tdap 05/11/2021 Family History Medical History Relation Name Comments No Known Problems Father No Known Problems Mother Breast cancer Neg Hx Colon cancer Neg Hx Ovarian cancer Neg Hx Thyroid cancer Neg Hx Uterine cancer Neg Hx Relation Name Status Comments Father Alive Mother Alive Social History Tobacco Use Types Packs/Day Years Used Date Smoking Tobacco: Never Smokeless Tobacco: Never Tobacco Cessation:Counseling Given: No Alcohol Use Standard Drinks/Week Comments No 0 (1 standard drink = 0.6 oz pur e alcohol) socially when not AUDIT-C Answer Date Recorded Frequency of Alcohol Consumption Never 02/01/2019 Average Number of Drinks Not on file 019 Frequency of Binge Drinking Not on file 01/07 [place] Depression Scale Answer Date Recorded Retired [place] Depression Score 9 09/02/2021 Retired EPD Scale: [...] on file Sexual Orientation Not on file Last Filed Vital Signs Vital Sign Reading Time Taken Comments Blood Pressure 110/70 09/09/2021 8:53 AM EDT Pulse 75 07/22/2021 8:45 AM EDT Temperature 36.7 C (98 F) 07/22/2021 8:45 AM EDT Respiratory Rate 18 07/22/2021 8:45 AM EDT Oxygen Saturation 97% 07/20/2021 7:28 AM EDT Inhaled Oxygen Concentration - - Weight 77.1 kg (170 lb) 09/09/2021 8:53 AM EDT Height 160 cm (5' 3 ) 09/09/2021 8:53 AM EDT Body Mass Index 30.11 09/09/2021 8:53 AM EDT Plan of Treatment Health Maintenance Due Date Last Done Comments ANNUAL PHYSICAL 12/20/2016 Annual Gynecologic Pelvic and Breast Exam 07/12/2019 07/10/2018 COVID-19 Vaccine (1 - 2023- season) 2024 INFLUENZA VACCINE 02/05/2025 TDAP/TD VACCINES (2 - Td or Tdap) 05/11/2031 05/11/2021 CHLAMYDIA SCREENING Discontinued 12/31/2020, 12/31/2020, 07/10/2018 HEPATITIS C SCREENING Completed 12/31/2020 , 08/24/2018 Pneumococcal Vaccine 0-49 Aged Out No longer eligible based on patient's age to complete this topic Procedures Procedure Name Priority Date/Time Associated Diagnosis Comments HEPATITIS C ANTIBODY Routine 12/31/2020 11:51 AM EDT care, subsequent in first trimester CHLAMYDIA TRACHOMATIS, NEISSERIA GONORRHOEAE, TRICHOMONAS VAGINALIS, PCR Routine 12/31/2020 care, subsequent in first trimester SCANNED - PAP SMEAR 07/10/2018 from Last 3 Months or Most Recently Relevant to Health Maintenance Results * Hepatitis C Antibody (12/31/2020 11:51 AM EDT) Hepatitis C Ab Non-Reacti ve Non-Reacti ve 12/31/2020 7:59 PM EDT [facility] Blood Venipuncture / Unknown 12/31/2020 11:51 AM EDT 12/31/2020 11:51 AM EDT Narrative [facility] - 12/31/2020 7:59 PM EDT Results may be falsely decreased if patient taking Biotin. Sierra Wolff MD LAB BLOOD ORDERABLES Final R esult [facility]
[address] [place] [address], * Chlamydia trachomatis, Neisseria gonorrhoeae, Trichomonas vaginalis, PCR - Swab, Cervix (12/31/2020) Swab Specimen from cervix or vagina / Unknown Sierra Wolff MD MICROBIOLOGY - GENERAL ORDER KRAIG Final Result [facility]
[address] [place] [address], * SCANNED - PAP SMEAR (07/10/2018) us Sierra Wolff MD CHART REVIEW TABS Final R esult from Last 3 Months or Most Recently Relevant to Health Maintenance Insurance PPO Advance Directives * CPR (Attempt to Resuscitate) (Latest Code Status on File) Date Activated Date Inactivated Comments 07/20/2021 3:13 PM 07/22/2021 4:23 PM Question Answer Comments Code Status (Patient has no pulse and is not breathing): CPR (Attempt to Resuscitate) Medical Interventions (Patie nt has pulse or is breathing): Full * CPR (Attempt to Resuscitate) Date Activated Date Inactivated Comments 07/19/2021 4:31 PM 07/20/2021 3:13 PM Question Answer Comments Code Status (Patient has no pulse and is not breathing): CPR (Attempt to Resuscitate) Medical Interventions (Patie nt has pulse or is breathing): Full Support Level Of Support Discussed With: Patient * CPR (Attempt to Resuscitate) Date Activated Date Inactivated Comments 02/13/2019 10:55 PM 02/15/2019 3:55 PM Question Answer Comments Code Status (Patient has no pulse and is not breathing): CPR (Attempt to Resuscitate) Medical Interventions (Patie nt has pulse or is breathing): Full * CPR (Attempt to Resuscitate) Date Activated Date Inactivated Comments 02/13/2019 4:10 AM 02/13/2019 10:55 PM Question Answer Comments Code Status (Patient has no pulse and is not breathing): CPR (Attempt to Resuscitate) Medical Interventions (Patie nt has pulse or is breathing): Full Care Teams Humane Officer Relationship Specialty Start Date End Date Aminata Christine PA [address] [place] [address] PCP - General Family Medicine 12/20/16
--- OUTSIDE RECORDS SUMMARY | 2024-12-03 14:20 | XMS_ITS | Referral Summary ---
Author Organization [email or web address] ([place], [place], [place], [place]) Address [address] [place] [address] Care Team Providers Care Facilities Painter Name Role Phone Unavailable Primary Care Provider Unavailabl e Social History Tobacco Use Types Packs/Day Years Used Date Smoking Tobacco: Never Assessed Comments Unknown Sex and Gender Information Value Date Recorded Sex Assigned at Female 11/02/2021 4:32 PM CDT Legal Sex Female 4:32 PM CDT Gender Identity Female 11/02/2021 4:32 PM CDT Sexual Orientation Not on file Plan of Treatment Not on file
--- OUTSIDE RECORDS SUMMARY | 2024-12-03 14:20 | XMS_ITS | Clinical Summary ---
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
[2024-12-03 14:23] LABS: COC Drug Screen Collection Only
[2024-12-04 08:16] LABS: Hep A Ab, Total Negative (Negative); Measles Antibodies, IgG 18.5 AU/mL (Immune >16.4); Mumps Abs, IgG 43.9 AU/mL (Immune >10.9); Rubella Antibodies, IgG <0.90 index (Immune >0.99)
== END ==
LOC: LAB 14:17
CPT/HCPCS: 36415; 86480; 86706; 86708; 86735; 86762; 86765; 86787